=== PATIENT | male | born 1950 | race Caucasian/White ===

== ENCOUNTER 2019-12-14 11:53 | Emergency (ER) | payer OTHER, MEDICAID ==
[~2019-12-14] VITALS: Ht 170.2 cm; Wt 70.0 kg
[~2019-12-14 11:53] MED LIST: ATOR40TA70 PO; BENZ200C52 PO; CLON1TAB MT; CLON1TAB PO; CLON2TAB MT; CLOP75TA4 PO; DEXL60CA3 PO; DICL75TA5 PO; DULA1.5P SQ; ERGO2000 PO; GABA-529 PO; INSLIS SUBCUT; INSU100I28 SQ; INSULIN; INSULIN GLARGINE; LINA145C PO
[2019-12-14] MEDS ORDERED: SODIUM CHLORIDE 0.9% 1,000 ML IV ONE (17:34)
[2019-12-14] MEDS ORDERED: ONDANSETRON HCL 4MG/2ML INJ IV STA (17:34)
[2019-12-14] MEDS ORDERED: METOCLOPRAMIDE HCL 10MG/2ML VIAL IV ONE (17:45)
[2019-12-14] MEDS ORDERED: DICYCLOMINE HCL 10MG/ML 2ML AMP IM ONE (17:45)
[2019-12-14 17:55] LABS: BASOPHILS % 0.3 % (0.0-2.0); EOSINOPHILS % 0.6 % (0.0-5.0); HEMATOCRIT. 47.7 % (42.0-52.0); LYMPHOCYTES % 27.5 % (20.0-50.0); MEAN CORPUSCULAR HEMOGLOBIN 29.1 pg (28.0-32.0); MEAN CORPUSCULAR VOLUME 86.8 fL (80.0-94.0); MEAN PLATELET VOLUME 9.8 fl (7.4-10.4); MONOCYTES % 8.7 % (2.0-8.0); NEUTROPHILS % 62.9 % (40.0-76.0); PLATELET 197 x1000/uL (130-400); RED CELL DISTRIBUTION WIDTH 16.8 % (11.6-14.6)
[2019-12-14 18:01] LABS: CHLORIDE 104 mEq/L (98-107)
[2019-12-14] MEDS ORDERED: IOHEXOL-300 100 ML BOTTLE ONE (19:04)
[2019-12-14 19:47] LABS: CLARITY URINE CLEAR (CLEAR); COLOR URINE YELLOW (YELLOW); KETONES URINE TRACE (NEGATIVE); LEUKOCYTE ESTERASE URINE NEGATIVE (NEGATIVE); NITRITE URINE NEGATIVE (NEGATIVE); OCCULT BLOOD URINE NEGATIVE (NEGATIVE); PH URINE 6.5 (4.5-8.0); PROTEIN URINE NEGATIVE (NEGATIVE); SPECIFIC GRAVITY URINE 1.013 (1.005-1.030); UROBILINOGEN URINE 0.2 E.U./dL (0.2-1.0)
[2019-12-14] MEDS ORDERED: FAMOTIDINE 20MG/2ML VIAL IV ONE (20:15)
[2019-12-14] MEDS ORDERED: VISCOUS LIDOCAINE 2% 15 ML UDC PO ONE (20:15)
[2019-12-14] MEDS ORDERED: MAGNESIUM/ALUMINUM HYDROXIDE/SIMETHICONE 30ML UDC PO ONE (20:15)
[2019-12-14] MEDS ORDERED: SIMETHICONE 80MG TABLET CHEW PO STA (21:34)
[2019-12-14 23:40] VITALS: BP 124/81
== END 2019-12-14 23:42 | disposition home or self-care (01) ==
LOC: ER 12:02
DX: R10.9 Unspecified abdominal pain (principal); E11.9 Type 2 diabetes mellitus without complications; I10 Essential (primary) hypertension; I82.409 Acute embolism and thrombosis of unspecified deep veins of unspecified lower extremity; Z79.4 Long term (current) use of insulin; Z79.899 Other long term (current) drug therapy
CPT/HCPCS: 36415; 74177; 80053; 81003; 83690; 84484; 85025; 93005; 96372; 96374; 96375; 99285; J0500; J2405; J2765; J3490; J7030; Q9967

== ENCOUNTER 2021-04-09 18:38 | Emergency (ER) | payer OTHER, MEDICAID ==
[~2021-04-09] VITALS: Ht 170.2 cm; Wt 74.0 kg
[~2021-04-09 18:38] MED LIST changes: +CLOP-31 PO; -CLOP75TA4 PO
[2021-04-09] MEDS ORDERED: ACETAMINOPHEN WITH CODEINE 300/30MG TABLET PO ONE (19:15)
[2021-04-09] MEDS ORDERED: MELO-105 MT (20:58)
[2021-04-09] MEDS ORDERED: KETOROLAC 60MG/2ML VIAL IM ONE (21:00)
[2021-04-09 23:04] VITALS: BP 135/74
== END 2021-04-09 23:08 | disposition home or self-care (01) ==
LOC: ER 18:38
DX: S70.02XA Contusion of left hip, initial encounter (principal); S70.01XA Contusion of right hip, initial encounter; S30.0XXA Contusion of lower back and pelvis, initial encounter; W06.XXXA Fall from bed, initial encounter; Y93.89 Activity, other specified; Y92.032 Bedroom in apartment as the place of occurrence of the external cause; I10 Essential (primary) hypertension; E11.9 Type 2 diabetes mellitus without complications; Z88.2 Allergy status to sulfonamides; Z79.4 Long term (current) use of insulin; Z79.899 Other long term (current) drug therapy
CPT/HCPCS: 72100; 73521; 96372; 99284; J1885

== ENCOUNTER 2021-06-03 20:29 | Emergency (ER) | payer OTHER, MEDICAID ==
[~2021-06-03] VITALS: Ht 165.1 cm; Wt 64.0 kg
[~2021-06-03 20:29] MED LIST changes: -CLOP-31 PO; +CLOP75TA4 PO; +MELO-105 MT
[2021-06-03] MEDS ORDERED: ACETAMINOPHEN 325MG TABLET PO ONE (23:30)
[2021-06-04 07:23] VITALS: BP 140/92
== END 2021-06-04 07:24 | disposition home or self-care (01) ==
LOC: ER 21:15
DX: S39.82XA Other specified injuries of lower back, initial encounter (principal); W01.0XXA Fall on same level from slipping, tripping and stumbling without subsequent striking against object, initial encounter; Y93.89 Activity, other specified; Y92.89 Other specified places as the place of occurrence of the external cause; E11.9 Type 2 diabetes mellitus without complications; I69.354 Hemiplegia and hemiparesis following cerebral infarction affecting left non-dominant side; I11.0 Hypertensive heart disease with heart failure; I50.9 Heart failure, unspecified; Z88.2 Allergy status to sulfonamides; Z95.1 Presence of aortocoronary bypass graft; Z86.718 Personal history of other venous thrombosis and embolism; Z79.899 Other long term (current) drug therapy; Z79.4 Long term (current) use of insulin
CPT/HCPCS: 72100; 72220; 82962; 93005; 99285